=== PATIENT | female | born 1965 | race Caucasian/White ===

== ENCOUNTER → 2017-11-06 | Outpatient (CLI) | payer OTHER ==
[~2017-11-06] MED LIST: AUGMENTIN 875875 MG PO; ESCITALOPRAM OX20 MG PO; ESTRADIOL 1 MG T1 M1 PO; HYDROCODONE-AP1 EAC6 PO; KEFLEX500 MG PO; NICOTINE TRANSD14 M1 TRANSDERM; NICOTINE TRANSD21 M1 TRANSDERM; NICOTINE TRANSDE7 MG TD; PREDNISONE 10 M10 MG PO; VENTOLIN HFA 1818 GM INH; ZOFRAN ODT4 MG PO
== END ==
LOC: M.RAD 11:41
DX: M19.012 Primary osteoarthritis, left shoulder (principal); M25.561 Pain in right knee; M25.562 Pain in left knee

== ENCOUNTER → 2018-03-24 | Outpatient (CLI) | payer OTHER | LOC: M.RAD 10:23 | DX: R05 Cough (principal); F17.200 Nicotine dependence, unspecified, uncomplicated ==